=== PATIENT | female | born 1945 | race Caucasian/White ===

== ENCOUNTER 2018-08-18 13:31 | Emergency (ER) | payer MEDICARE ==
[2018-08-18 14:06] LABS: Bacteria/HPF 1+ HPF (None Seen); Bilirubin Small (Negative); Blood, Urine Negative (Negative); Clarity Hazy (Clear); Glucose, Urine (Dipstick) Negative (Negative); Leukocyte Trace (Negative); Nitrite Negative (Negative); Protein, Urine (Dipstick) Trace mg/dL (Neg-Trace); RBC/HPF 0-3 HPF (0-3); Specific Gravity, Urine 1.025 (1.005-1.030); Urobilinogen 0.2 mg/dL (0.2-1.0); WBC/HPF 0-3 HPF (0-3); pH, Urine 5.5 (5.0-9.0)
== END 2018-08-18 14:19 | disposition home or self-care (01) ==
LOC: MADERS 13:31
DX: B48.8 Other specified mycoses (principal); N30.90 Cystitis, unspecified without hematuria; K21.9 Gastro-esophageal reflux disease without esophagitis; Z79.899 Other long term (current) drug therapy
CPT/HCPCS: 81001; 87077; 87086; 99283

== ENCOUNTER 2018-10-12 16:53 | Emergency (ER) | payer MEDICARE ==
[2018-10-12] MEDS ORDERED: HYDROcodone/Acetaminophen 10/325 mg Tablet ONE (17:19)
[2018-10-12] MEDS ORDERED: Lidocaine 2% 20 ml MDV ONE (17:56)
--- NOTE | 2018-10-12 18:55 | RAD ---
CHEST ONE VIEW: History: Chest injury. Comparison: 05-23-18 FINDINGS: Cardiac silhouette is magnified by projection. Pulmonary vasculature is accentuated by shallow inspir ation. Wide spread reticular interstitial thickening is more apparent than on the prior study. No lob ar consolidation or evidence of pneumothorax. IMPRESSION: Chronic type findings are stable. No active cardiopulmonary abnormalities are demonstrated. POS: [facility]
--- NOTE | 2018-10-12 19:00 | RAD ---
LEFT WRIST THREE VIEWS: History: Left wrist injury. FINDINGS: There is callus formation about an impacted distal radial metaphyseal fracture. A subtle sagittally o riented intraarticular component at the level of the scapholunate joint is present with minimal step off. Mild dorsal tilt of the distal radius. Comminuted predominately oblique fracture of the distal ulnar metaphysis is present with apex volar a nd lateral angulation. Scaphoid waist is intact. Degenerative changes of the first carpal metacarpal joint. IMPRESSION: 1. A nondisplaced intraarticular fracture of the distal radius is suspected to be superimposed upon a healing impacted distal radial fracture with slight dorsal tilt. 2. Comminuted mildly displaced and angulated distal ulnar fracture. POS: [facility]
--- NOTE | 2018-10-12 19:03 | CT ---
CT HEAD NONCONTRAST: History: Head injury. FINDINGS: No comparison. There is no evidence of acute intracranial hemorrhage or infarct. Mild diffuse cortica l atrophy and chronic ischemic small vessel disease. There is no mass effect or shift of midline stru ctures. Visualized paranasal sinuses remain well aerated. IMPRESSION: No acute intracranial abnormalities are demonstrated. POS: [facility]
--- NOTE | 2018-10-12 19:31 | CT ---
CT CERVICAL SPINE NONCONTRAST 10/12/18 HISTORY: Neck injury. FINDINGS: Vertebral body heights and alignment are maintained. Anterior fixation hardware is in place at the C5 -6-7 levels with interbody fusion material. Osteophytosis throughout the vertebral bodies and facets. Mild rightward convexed curvature. Cervicothoracic junction is intact. No acute fracture or dislocat ion. IMPRESSION: Postoperative and degenerative changes of the cervical spine. No acute osseous abnormalities are dem onstrated. POS: [facility]
--- NOTE | 2018-10-12 20:04 | RAD ---
LEFT WRIST THREE VIEWS: 10/12/18 HISTORY: Wrist fracture with reduction. COMPARISON: Earlier exam on the same date. FINDINGS: Overlying fiberglass splint now in place. Near complete reduction of the displacement of the distal u lnar fracture. radial alignment is unchanged. IMPRESSION: No new abnormalities are apparent. POS: [facility]
== END 2018-10-12 19:08 | disposition home or self-care (01) ==
LOC: MADERS 16:53
DX: S52.502A Unspecified fracture of the lower end of left radius, initial encounter for closed fracture (principal); S52.602A Unspecified fracture of lower end of left ulna, initial encounter for closed fracture; W18.30XA Fall on same level, unspecified, initial encounter
CPT/HCPCS: 25675; 70450; 71045; 72125; J2001

== ENCOUNTER 2019-11-02 11:20 | Emergency (ER) | payer MEDICARE ==
--- NOTE | 2019-11-02 12:34 | RAD ---
EXAM: Chest 2 views: HISTORY: Cough COMPARISON: None. FINDINGS: There is a normal-sized cardiomediastinal silhouette. Increased interstitial markings are present. There is no evidence of consolidation, mass, or pleural effusion. The bones are unremarkable. IMPRESSION: No evidence of acute cardiopulmonary disease
== END 2019-11-02 13:30 | disposition home or self-care (01) ==
LOC: MADERS 11:20
DX: J18.9 Pneumonia, unspecified organism (principal); I10 Essential (primary) hypertension; K21.9 Gastro-esophageal reflux disease without esophagitis; F41.9 Anxiety disorder, unspecified; F32.9 Major depressive disorder, single episode, unspecified; Z79.899 Other long term (current) drug therapy
CPT/HCPCS: 71046; 87081; 87430